=== PATIENT | male | born 1965 | race Caucasian/White ===

== ENCOUNTER 2020-10-07 14:51 | Emergency (ER) | payer BC ==
[2020-10-07] MEDS ORDERED: TORAdol 30 mg Injection IM ONE (15:22)
[2020-10-07] MEDS ORDERED: TORAdol 30 mg Injection ONE (15:25)
--- NOTE | 2020-10-07 15:54 | ERPHSYRPT ---
- History of Present Illness Time Seen by Provider: 10/07/20 15:10 Source: patient Exam Limitations: no limitations Patient Subjective Stated Complaint: Right hip pain Triage Nursing Assessment: Patient ambulated back to ED on crutches and transfer red self to bed. Patient A+ O X3. Patient's skin pink, warm and dry. Patient complains of right hip pain constant aching intermittent sharp pain 5/10. Patient states he was walking in his kitchen last night and slipped on his laminate niesha in sock feet landing on right hip. Patient states the pain is worse when bearing weight to right leg. No internal/external rotation noted. No shortening of extremtie. Physician History: 55 years old male presented in the ER with chief complaint of right hip pain since yesterday after he was walking in the kitchen, slipped and landed on right hip. He was able to get up with help but weightbearing is difficult since yesterday associated with moderate intensity sharp pain which is aggravated with movements of the hip and better with being still. No numbness tingling or weakness of right lower extremity. No limb shortening. No injury anywhere else. Method of Injury: fell Occurred: yesterday Quality: sharpness Severity of Pain-Max: moderate Severity of Pain-Current: moderate Lower Extremities Pain: hip: right Modifying Factors: Improves With: immobilization, rest. Worsens With: movement Associated Symptoms: unable to bear weight Allergies/Adverse Reactions: No Known Drug Allergies Allergy (Verified 10/07/20 15:26) Home Medications: Citalopram Hydrobromide [ceLEXa] 40 mg PO DAILY 11/24/15 [History] Acarbose 1 tab PO TID 10/07/20 [History] Ergocalciferol (Vitamin D2) [Vitamin D2] 1 tab PO WEEKLY 10/07/20 [History] Lorazepam 0.5 mg [Ativan 0.5 MG] 1 tab PO DAILY PRN PRN 10/07/20 [History] Hx Tetanus, Diphtheria Vaccination/Date Given: Yes Hx Influenza Vaccination/Date Given: Yes Hx Pneumococcal Vaccination/Date Given: No Immunizations Up to Date: Yes Travel Risk - International Travel Have you traveled outside of the country in past 3 weeks: No - Coronavirus Screening Are you exhibiting any of the following symptoms?: No Close contact with a COVID-19 positive Pt in past 14-21 Days: No - Review of Systems Constitutional: No Symptoms Eyes: No Symptoms Ears, Nose, & Throat: No Symptoms Respiratory: No Symptoms Cardiac: No Symptoms Abdominal/Gastrointestinal: No Symptoms Genitourinary Symptoms: No Symptoms Musculoskeletal: Injury, Joint Pain Skin: No Symptoms Neurological: No Symptoms Psychological: No Symptoms Endocrine: No Symptoms Hematologic/Lymphatic: No Symptoms Immunological/Allergic: No Symptoms - Past Medical History Neurological History: No Pertinent History ENT History: No Pertinent History Cardiac History: Other Respiratory History: No Pertinent History Endocrine Medical History: Hypoglycemia Musculoskeletal History: No Pertinent History GI Medical History: Ulcer History: No Pertinent History Psycho-Social History: Anxiety, Depression Male Reproductive Disorders: No Pertinent History Other Medical History: heart murmur, cat scratch fever - Past Surgical History Past Surgical History: Yes Neuro Surgical History: No Pertinent History Cardiac: No Pertinent History Respiratory: No Pertinent History Gastrointestinal: Other Genitourinary: No Pertinent History Musculoskeletal: No Pertinent History Male Surgical History: No Pertinent History Other Surgical History: GASTRIC BYPASS IN 2004, cyst removal from right armpit as a child - Social History Smoking Status: Never smoker Exposure to second hand smoke: No Drug Use: none Patient Lives Alone: No - Nursing Vital Signs Nursing Vital Signs: Initial Vital Signs Temperature 97.9 F 10/07/20 15:19 Pulse Rate 69 10/07/20 15:19 Respiratory Rate 18 10/07/20 15:19 Blood Pressure 136/75 10/07/20 15:19 O2 Sat by Pulse Oximetry 98 10/07/20 15:19 Pain Scale Pain Intensity 5 - Physical Exam General Appearance: no apparent distress, alert Eyes, Ears, Nose, Throat Exam: normal ENT inspection, TMs normal, pharynx normal Neck Exam: normal inspection, non-tender, supple, full range of motion Cardiovascular/Respiratory Exam: chest non-tender, normal breath sounds, regular rate/rhythm Gastrointestinal/Abdominal Exam: non-tender, soft Back Exam: normal inspection, normal range of motion, No CVA tenderness Hips Exam: right: bone tenderness, limited range of motion, pain, soft tissue tenderness, left: non-tender, normal inspection, normal range of motion Legs Exam: bilateral leg: non-tender, normal inspection, normal range of motion, no evidence of injury Neuro/Tendon Exam: normal sensation, normal motor functions, normal tendon functions Mental Status Exam: alert, oriented x 3, cooperative Skin Exam: normal color SpO2 Interpretation: normal SpO2: 98 O2 Delivery: Room Air Ordered Tests: Active Orders 24 hr Category Date Time Status HIP UNI (2V) INCL PEL IF DONE Stat Exams 10/07/20 16:04 Completed Medication Summary Discontinued Medications Generic Name Dose Route Start Last Admin Trade Name Freq PRN Reason Stop Dose Admin Ketorolac Tromethamine 30 mg 10/07/20 15:22 10/07/20 15:30 Toradol 30 Mg Injection IM 10/07/20 15:23 30 mg STAT ONE Administration Ketorolac Tromethamine Confirm 10/07/20 15:25 Toradol 30 Mg Injection Administered 10/07/20 15:26 Dose 30 mg .ROUTE .STK-MED ONE - Progress Progress: improved, pain not gone completely Progress Note: 10/07/20 16:32 Ruled out fracture dislocation of the hip. Patient is feeling better after Toradol shot. I believe patient has hip contusion. Recommended taking Tylenol ibuprofen and weightbearing as tolerated, outpatient Ortho clinic follow-up. Discussed signs symptoms of worsening needing return to ER which he seems understanding. Counseled pt/family regarding: diagnosis, need for follow-up, rad results - Departure Departure Disposition: Home Clinical Impression: Contusion of right hip Qualifiers: Encounter type: initial encounter Qualified Code(s): S70.01XA - Contusion of right hip, initial encounter Condition: Stable Critical Care Time: No Referrals: JANKI TERRELL [Primary Care Provider] - Follow Up with PCP/3 days AYESHA ESQUIVEL NP [NON-STAFF PHY W/O PRIVILEGES] - (2 days for reevaluation) Instructions: Contusion (DC) Additional Instructions: Take Tylenol/ibuprofen alternate for pain as needed. Weightbearing as tolerated. Follow-up outpatient with Ortho clinic for reevaluation. Return to ER for any worsening. Prescriptions: Ibuprofen 600 mg PO Q6HPRN PRN 10 Days #20 tablet PRN Reason: Pain
--- NOTE | 2020-10-07 16:06 | XRAY ---
Indication: Pain following fall. Comparison: None 2 view right hip obtained. No bony, articular, or soft tissue abnormalities.
[2020-10-07 16:07] VITALS: BP 131/75; PULSE 65
[2020-10-07 16:35] VITALS: O2SAT 98
== END 2020-10-07 16:41 | disposition home or self-care (01) ==
LOC: ED 14:51
DX: S70.01XA Contusion of right hip, initial encounter (principal); M25.551 Pain in right hip; W01.198A Fall on same level from slipping, tripping and stumbling with subsequent striking against other object, initial encounter; Y93.01 Activity, walking, marching and hiking; Y92.89 Other specified places as the place of occurrence of the external cause
CPT/HCPCS: 73502; 96372; 99284; J1885

== ENCOUNTER 2021-04-10 05:32 | Day surgery (SDC) | payer OTHER ==
[2021-04-10] MEDS ORDERED: Lactated Ringers 1,000 ML IV SCH (06:00)
[2021-04-10] MEDS ORDERED: DIPRIVAN 200 MG/20 ML IV ONE ×2 (06:57→07:06)
[2021-04-10 08:10] VITALS: BP 123/71; PULSE 52; O2SAT 100
--- NOTE | 2021-04-10 15:02 | OP ---
SURGERY DATE: 04/10/2021 SURGERY TIME: 0700 PREOPERATIVE DIAGNOSIS: 1. SCREENING EXAM. POSTOPERATIVE DIAGNOSIS: 1. NORMAL COLON. PROCEDURE: 1. Colonoscopy. SURGEON: Dr. Sage. ANESTHESIA: MAC. Medications given by the Anesthesia Department. BRIEF HISTORY: The patient is a 55 y/o WM patient presenting now for his first screening colonoscopy. He was appraised of the risks of the procedure including the risk of perforation, phlebitis, untoward reaction to medication, bleeding, and missed lesions. The patient verbalized his understanding and desired to have the procedure performed. DESCRIPTION OF PROCEDURE: The patient was given the medications by the Anesthesia Department. He had continuous pulse oximetry, ECG monitoring, intermittent BP monitoring, and end tidal CO2 monitoring during the examination. He was placed in the left lateral decubitus position. A digital rectal examination was performed and revealed normal anal sphincter tone, no masses, and a normal prostate. The flexible Olympus pediatric colonoscope was used to intubate the rectum. A view of the colon was developed sequentially to the cecum. Upon insertion and withdrawal, including a retroflex view in the rectum, no mucosal lesions were encountered. The scope was removed from the patient who tolerated the procedure well and was sent back to OP recovery in good condition. The prep was noted to be fair.
== END 2021-04-10 08:13 | disposition home or self-care (01) ==
LOC: SDC 05:32
PROVIDERS: ATTEND Family Medicine
DX: Z12.11 Encounter for screening for malignant neoplasm of colon (principal)
CPT/HCPCS: J2704

== ENCOUNTER 2023-01-01 14:33 | Day surgery (SDC) | payer OTHER ==
[2023-01-01] MEDS ORDERED: Depo-Medrol 40 MG/ML IM ONE (14:34)
[2023-01-01] MEDS ORDERED: LIDOCAINE HCL 1% 50 MG/5 ML VL PF IJ ONE (14:34)
[2023-01-01] MEDS ORDERED: BUPIVACAINE 0.5% VIAL IJ ONE (14:34)
[2023-01-01] MEDS ORDERED: DIPRIVAN 200 MG/20 ML IV ONE (16:40)
[2023-01-01] MEDS ORDERED: Lactated Ringers 1,000 ML IV ONE (17:16)
--- NOTE | 2023-01-01 20:51 | XRAY ---
Indication: Bilateral hip injection. Intraoperative fluoroscopy provided for 37 seconds. 2 digital spot image submitted for interpretation demonstrates needle tip projecting lateral to the left and right femur necks. Small amount of contrast injected for needle tip placement. Correlate with intraoperative findings/report.
--- NOTE | 2023-01-02 08:42 | XRAY ---
37 seconds of fluoroscopy was used in surgery for a bilateral intra-articular hip injection.
== END 2023-01-01 17:10 | disposition home or self-care (01) ==
LOC: SDC-PAIN 14:33
PROVIDERS: ATTEND Psychiatry & Neurology Pain Medicine
DX: M17.0 Bilateral primary osteoarthritis of knee (principal); Z79.899 Other long term (current) drug therapy
CPT/HCPCS: 20610; 73521; 77002; J1030; J2001; J2704; Q9966

== ENCOUNTER 2023-02-19 13:21 | Day surgery (SDC) | payer OTHER ==
[2023-02-19] MEDS ORDERED: BUPIVACAINE 0.5% VIAL IJ ONE (13:22)
[2023-02-19] MEDS ORDERED: Depo-Medrol 40 MG/ML IM ONE (13:22)
[2023-02-19] MEDS ORDERED: DIPRIVAN 200 MG/20 ML IV ONE (14:24)
[2023-02-19] MEDS ORDERED: Lactated Ringers 1,000 ML IV ONE (14:49)
--- NOTE | 2023-02-19 18:16 | XRAY ---
Indication: Bilateral SI joint injection. Intraoperative fluoroscopy provided for 15 seconds. 6 digital spot image submitted for interpretation demonstrates posterior needle tip projecting over the left and right SI joint. Correlate with intraoperative findings/report.
--- NOTE | 2023-02-20 17:15 | XRAY ---
15 seconds of fluoroscopy was used in surgery for bilateral SI joint injections.
== END 2023-02-19 14:50 | disposition home or self-care (01) ==
LOC: SDC-PAIN 13:21
PROVIDERS: ATTEND Psychiatry & Neurology Pain Medicine
DX: M46.1 Sacroiliitis, not elsewhere classified (principal); Z79.899 Other long term (current) drug therapy
CPT/HCPCS: 27096; 72202; 77002; J1030; J2704; G0260